=== PATIENT | female | born 1950 | race Caucasian/White ===

== ENCOUNTER 2017-03-02 15:33 | Emergency (ER) | payer MEDICARE ==
[~2017-03-02] VITALS: Ht 157.5 cm; Wt 95.9 kg
[2017-03-02 15:50] VITALS: BP 145/93; PULSE 85; RESP 16; O2SAT 96
[2017-03-02 16:54] LABS: BASOPHILS % (AUTO) 0.4 % (0-3); EOSINOPHILS % (AUTO) 1.6 % (0-5); MONOCYTES % (AUTO) 6.1 % (4-12); Mean Corpuscular Hemoglobin 30.4 pg (27.0-35.0); Mean Corpuscular Volume 89.4 fL (81-100); NEUTROPHILS % (AUTO) 65.2 % (40-74); Platelet Count 279 bil/L (150-400)
--- NOTE | 2017-03-02 19:59 | ED.REPORT ---
HPI-Psychiatric Illness Date of Service Mar 02, 2017 ED Provider: Jamal Guillen DO A 64 year old female with a history of uncontrolled type II diabetes mellitus, colon cancer s/p sigmoidectomy (in remission) and peripheral neuropathy presents to the ED with worsening depression that began earlier this week. Patient reports that her 20 year marriage has been very stressful lately. She is currently going through a complicated divorce and reports that she is losing a significant amount of money in the divorce. The patient recently returned from [place] with an intimate partner who is "very compatible". She denies current suicidal ideation or any suicidal plan but she would "like this to be over". Patient has not been taking medication for her diabetes because of adverse reaction to metformin and insulin. Nursing Notes Stated Complaint: PSYCH EVAL Chief Complaint: Psychiatric Complaint Nursing Notes Reviewed: Yes Allergies: Coded Allergies: meperidine HCl (Verified Allergy, Severe, NAUSEA , 03/02/17) oxycodone (Verified Allergy, Severe, HALLUCINATIONS, 03/02/17) hydrocodone (Verified Adverse Reaction, Severe, itchy, 03/02/17) General Time Seen by MD: 19:58 Chief Complaint Depressed Hx Obtained From: Patient Arrived By: Walk-in Onset Occurred: 1 week ago Symptom Duration: Since onset Progression Since Onset: Gradually worsening Associated with: Reports: Depression Pertinent Negative: Pt denies other symptoms Recent Healthcare: No recent doctor visit, No recent hospitalization Risk-Psychiatric Illness Suicide Risk Stratification RF Statements: Risk factors reviewed Past Medical History Past Medical History Diabetes mellitus type II uncontrolled Diabetic neuropathy History of colon cancer s/p sigmoidectomy Past Surgical History Sigmoidectomy Smoking History Unknown if Ever Smoker Social History No tobacco use Alcohol Use: Denies alcohol use Drug Use: Denies drug use Other Social History: , Local resident Ambulatory Status Independent Review of Systems Psychiatric: Reports: Depression, Suicidal ideation, Denies: Homicidal ideation Complete sys rev & neg: except as marked. Physical Exam Initial Vital Signs Vital Signs (First) Date Time Temp Pulse Resp B/P Pulse Ox O2 Delivery O2 Flow Rate FiO2 03/02/17 15:50 37.2 85 16 145/93 96 Room Air Initial VS: Reviewed Head / Eyes: Atraumatic, Normocephalic, PERRL Neck: Supple, Non-tender, Full range of motion Extremities: Vascular intact, Neuro intact, No swelling, No tenderness Skin: Warm, Dry, No cyanosis General/Constitutional: Awake, Alert Neurologic: Oriented X3, Speech NL, No motor deficits, No sensory deficits, CN II - XII intact Psychiatric: Not homicidal Abnormal Mood/Affect: Positive: Depressed Abnormal Thinking / Perception: Positive: Suicidal, no plan, Tangential thinking Interpretation & Diagnostics Lab Results Interpretation Result Diagram: 03/02/17 1645 03/02/17 1645 Test 03/02/17 16:45 03/02/17 18:51 White Blood Count 7.9th/mm3 (3.8-10.1) Red Blood Count 4.54mil/mm3 (3.90-5.20) Hemoglobin 13.8g/dL (12.0-15.6) Hematocrit 40.6% (35.0-46.0) Mean Corpuscular Volume 89.4fL (81-100) Mean Corpuscular Hemoglobin 30.4pg (27.0-35.0) Mean Corpuscular Hemoglobin Concent 34.0% (32.0-37.0) Red Cell Distribution Width 13.7% (12.3-15.4) Platelet Count 279bil/L (150-400) Neutrophils (%) (Auto) 65.2% (40-74) Lymphocytes (%) (Auto) 26.4% (14-46) Monocytes (%) (Auto) 6.1% (4-12) Eosinophils (%) (Auto) 1.6% (0-5) Basophils (%) (Auto) 0.4% (0-3) Sodium Level 137mEq/L (134-144) Potassium Level 4.6mEq/L (3.5-5.2) Chloride Level 98mEq/L (97-108) Carbon Dioxide Level 23mmol/L (18-29) Blood Urea Nitrogen 10mg/dL (8-27) Creatinine 0.77mg/dL (0.57-1.00) Estimat Glomerular Filtration Rate 107mL/min (>59) Glucose Level 409mg/dL (60-99) Calcium Level 9.8mg/dL (8.5-10.1) Total Bilirubin 0.2mg/dL (0.0-1.2) Aspartate Amino Transf (AST/SGOT) 19U/L (0-50) Alanine Aminotransferase (ALT/SGPT) 19U/L (0-32) Alkaline Phosphatase 65U/L (25-165) Total Protein 7.1g/dL (6.4-8.4) Albumin 3.5g/dL (3.4-5.0) Thyroid Stimulating Hormone (TSH) 0.347uIU/mL (0.450-4.500) Hold Gomez Top Tube Received (Received) Hold Urine Received (Received) Re-Eval/Medical Decision Med Decision/Clinical Course Kvng is obvious he distressed and depressed about her current marital and social situation. She is not however suicidal. She does not have a plan. She would like her whole problem list to be solved tinnitus and possible tonight. Our director social service evaluated her. Kvng felt much better after this. She agrees that she is not going to be at any risk and she has a dog with her that she seems to love. She will be home tonight. Outpatient follow-up will be given. She is to return if she has any suicidal or homicidal ideations. Regarding the diabetes she has been intolerant to several medications. I recommend diet and lifestyle modification and then most likely back in the metformin. She can of course discuss this and follow-up on the fifth. Re-Evaluation/Progress : Time of Eval: 22:05 )( Re-Eval Psychiatric: No danger to self, No danger to others, No suicidal ideation, No homicidal ideation Re-Evaluation/Progress Note: Patient is rechecked. All questions about the intended treatment plan are addressed. She understands and agrees with the plan. Counseled Regarding: Diagnosis, Lab results, Need for follow-up, When/why to return to ED Discharge & Departure Impression: Primary Impression: Depression Depression Type: unspecified Qualified Code: F32.9 - Major depressive disorder, single episode, unspecified Additional Impression: Hyperglycemia )( Condition at Discharge: No danger to self, No danger to others, No suicidal ideation, No homicidal ideation Disposition: Home Discharge Condition All VS Reviewed: Yes Condition: Stable Patient Instructions: Depression (ED), Diabetes in the Older Adult (DC) Additional Instructions: Our director social service recommends that you follow-up with the outpatient referrals as given regarding your mental health. Regarding your diabetes it is essential that you follow a diabetic diet. I think you are going to need to be back on medications. Call your doctor on Thursday morning for urgent follow-up regarding your blood sugar. I am sorry that you are going through marital struggles. If symptoms worsen do not hesitate to come back to emergency department. If you feel suicidal or if you feel homicidal or if you feel like having a psychiatric or medical emergency do not hesitate to return to the ER. It was very nice meeting you. Referrals: Gloria Gutierrez (PCP) [facility] Attestation Portions of this note were transcribed by Amelie Rico. I, Dr. Guillen personally performed the history, physical exam and medical decision-making; I reviewed and confirmed the accuracy of the information in the transcribed note. Signed by: Jose Kc, 03/02/17 [id number]. copies to: Gloria Gutierrez Todd P DO Mar 02, 2017 19:59 AMELIE RICO Mar 02, 2017 20:09
[2017-03-02 21:31] VITALS: BP 148/81; PULSE 69; RESP 20; O2SAT 97
[2017-03-02 22:16] VITALS: BP 150/78; PULSE 64; RESP 20; O2SAT 99
== END 2017-03-02 22:17 | disposition home or self-care (01) ==
LOC: SED 15:33
DX: F32.9 Major depressive disorder, single episode, unspecified (principal); E11.65 Type 2 diabetes mellitus with hyperglycemia; E11.40 Type 2 diabetes mellitus with diabetic neuropathy, unspecified; Z88.5 Allergy status to narcotic agent